=== PATIENT | female | born 1965 | race Caucasian/White ===

== ENCOUNTER 2016-09-28 11:56 | Emergency (ER) | payer BC, OTHER ==
[2016-09-28 12:09] VITALS: BP 116/77; BMI 41.7
[2016-09-28] MEDS ORDERED: VALIUM INJ IM ONE (12:48)
--- NOTE | 2016-09-28 12:50 | DR.GENAD ---
HPI - PCP Primary Care Physician: Aris Milian - Complaint/Symptoms Chief Complaint Doctors Comments: Patient admits to head (occipital) pain when head is in motion. She admits to severe neck pain. Chief Complaint:: Pain in lower skull, radiating to face and jaw. Self Treatment fo Chief Complaint: shoulders were hurting and it radiated to head, now it is in lower skull radiating to face and jaw. - Source History Provided: Patient - Mode of Arrival Mode of Arrival: Ambulatory - Timing Onset of Chief Complaint: 09/26/16 PMH - PMH Past Medical History: Yes Past Medical History: Diabetes, GERD, Headaches, Hypertension, Hypothyroidism Past Surgical History: Yes Surgical History: Cholecystectomy, Hysterectomy - Family History History of Family Medical Conditions: Yes Family Medical History: [place], Coronary Artery Disease - Social History Does patient currently use any type of tobacco product: No Have you used tobacco products in the last 12 months: No Type of Tobacco Use: None Does any household member use tobacco: No Alcohol Use: None Do you use any recreational Drugs:: No Lives With: Spouse Lives Where: Home - infectious screening In the last 2 months have you had wt loss of >10#?: NO Have you had fever, night sweats or hemotysis?: No Have you traveled outside the country in the last 6 months?: No Isolation: Standard ROS - Review of Systems Eyes: No Symptoms Reported ENTM: No Symptoms Reported Respiratoy: No Symptoms Reported Cardiovascular: No Symptoms Reported Gastrointestinal/Abdominal: No Symptoms Reported Genitourinary: No Symptoms Reported Neurological: No Symptoms Reported Musculoskeletal: No Symptoms Reported Integumentary: No Symptoms Reported Hematologic/Lymphatic: No Symptoms Reported Endocrine: No Symptoms Reported Psychiatric: No Symptoms Reported All Other Systems: Reviewed and Negative PE - Vital Signs Vitals: Temperature 98.5 F Pulse Rate 110 Respiratory Rate 20 Blood Pressure [Right Arm] 133/87 Blood Pressure 116/77 O2 Sat by Pulse Oximetry 94 - General Limitations: No Limitations General Appearance: Alert, Anxious - Head Head Exam: Normal Inspection, Atraumatic - Eyes Eye exam: Normal Appearance, PERRL, EOMI - ENT ENT Exam: Normal Exam, Normal Oropharynx External Ear Exam: Normal External Inspection TM/Canal Exam: Left Normal Nose Exam: Normal Nose Exam Mouth Exam: Normal Inspection Throat Exam: Normal Inspection - Neck Neck Exam: Normal Inspection, Tenderness, Other (decreased ROM) - Chest Chest Inspection: Normal Inspection - Respiratory Respiratory Exam: Normal Lung Sounds Bilat Respiratory Exam: Bilateral Clear to Auscultation - Cardiovascular Cardiovascular Exam: Regular Rate, Normal Rhythm - Abdominal Exam Abdominal Exam: Normal Inspection Abdominal Tenderness: negative: RUQ, RLQ, LUQ, LLQ, Epigastrium, Suprapubic, Diffuse, Mild, Moderate, Severe, Other - Extremities Extremities Exam: Normal Inspection, Full ROM, Tenderness - Back Back Exam: Normal Inspection, Full ROM - Neurologic Neurological Exam: Alert, Oriented X3, CN II-XII Intact - Psychiatric Psychiatric Exam: Depressed - Skin Skin Exam: Warm, Dry, Intact ROR - XRAY XRAY Interpreted by: Radiologist (Cervical Spine:There is moderate disc space narrowing throughout the lower cervical spine which is most sevee at C5 and C6- 7 with prominent osteophytes at both levels. No fracture of subluxation is seen. The atlantoaxial joint is partially obscuree on the open mouth view. The prevertebral soft tissues are normal.) - Diagnosis Discharge Problem: DJD (degenerative joint disease) of cervical spine Qualifiers: Spinal osteoarthritis complication: with radiculopathy Qualified Code(s): M47.22 - Other spondylosis with radiculopathy, cervical region - Discharge Plan Condition: Stable - Follow ups/Referrals Follow ups/Referrals: ARIS MILIAN [Primary Care Provider] - 3 days - Instructions
[2016-09-28] MEDS ORDERED: VALIUM INJ ONE (12:51)
--- NOTE | 2016-09-28 13:13 | RAD ---
HISTORY: pain Study: C-spine series Comparison: None Findings: The cervical vertebra are well aligned. There is moderate disc space narrowing throughout the lower cervical spine which is most severe at C5-6 and C6-7 with prominent osteophytes at both levels. No f racture or subluxation is seen. The atlantoaxial joint is partially obscured on the open-mouth view. The prevertebral soft tissues are normal. IMPRESSION: Moderate degenerative disk changes along the lower cervical spine with no acute abnormality seen. Partial obscuration of the atlantoaxial joint on the open-mouth view limiting evaluation of the area . Reported By:
== END 2016-09-28 13:42 | disposition home or self-care (01) ==
LOC: ER 12:13
DX: M47.22 Other spondylosis with radiculopathy, cervical region (principal)
CPT/HCPCS: 72040; 96372; 99282; J3360

== ENCOUNTER 2017-05-25 17:37 | Emergency (ER) | payer OTHER ==
[2017-05-25 17:45] VITALS: BMI 39.6
--- NOTE | 2017-05-25 18:09 | DR.CP ---
HPI - Time Seen Time seen: 17:50 - PCP Primary Care Physician: KYUNG MAHAN LEHR ATTENDANT - Complaint Chief Complaint Doctor Comments: She had c/p on Friday (4days ago) and this morning in [facility]. There was no diaphoresis, N/V or palpation. Her yearly cardiology exam. is coming up in [address] Lee. Location is beneath her left breast and sometimes in left mid-clavicular line over the left breast. Chief Complaint:: PT C/O HAVING SOME CHEST PAIN WHILE AT [employer] THIS AM AND THAT IT BAGAN TO WORK ITS WAY UP TO BETWEEN HER BREASTS THAT THIS IT STOPPED OVER HER LEFT BREASTS AND SHARP PAIN PT DENIES ANY PRESSRUE OR RADIATION.. Self Treatment fo Chief Complaint: PT SEES IRINA DIAZ AND SHE HAS AN APPT ON FRIDAY AND PT WANTS TO BE CHECKED DUE TO STRONG FAMILY HX,,,, PT STATES THIS HAS HAPPENED BEFORE AND THAT HER BROTHER OF A MASSIVE MA IN 2014.. - Reviewed Nurses Notes Review: Yes - Source History Provided: Patient - Mode of Arrival Mode of Arrival: Ambulatory - Timing Onset of Chief Complaint: 05/25/17 - Location Location of Chest Pain: Left, Chest Chest Pain Radiation Location: None - Context Onset: At rest Cardiac Risk Factors: HTN, Other (PreDM) PE Risk Factors: None History of: None - Quality Quality: Sharp - Associated Signs and Symptoms Associated Signs and Symptoms: None PMH - PMH Past Medical History: Yes Past Medical History: Diabetes, GERD, Headaches, Hypertension, Hypothyroidism Past Surgical History: Yes Surgical History: Cholecystectomy, Hysterectomy - Family History History of Family Medical Conditions: Yes Family Medical History: [place], Coronary Artery Disease - Social History Does patient currently use any type of tobacco product: No Have you used tobacco products in the last 12 months: No Type of Tobacco Use: None Does any household member use tobacco: No Alcohol Use: None Do you use any recreational Drugs:: No Lives With: Family Lives Where: Home - infectious screening In the last 2 months have you had wt loss of >10#?: NO Have you had fever, night sweats or hemotysis?: No Have you traveled outside the country in the last 6 months?: No Isolation: Standard ROS - Review of Systems Constitutional: No Symptoms Reported Eyes: No Symptoms Reported ENTM: No Symptoms Reported Respiratoy: No Symptoms Reported Cardiovascular: Chest Pain Gastrointestinal/Abdominal: No Symptoms Reported Genitourinary: No Symptoms Reported Neurological: No Symptoms Reported Musculoskeletal: No Symptoms Reported Integumentary: No Symptoms Reported Hematologic/Lymphatic: No Symptoms Reported Endocrine: No Symptoms Reported Psychiatric: No Symptoms Reported All Other Systems: Reviewed and Negative PE - Vitals Vitals: Temperature 98.2 F Pulse Rate 77 Respiratory Rate 18 Blood Pressure [Right Arm] 133/87 Blood Pressure 144/90 O2 Sat by Pulse Oximetry 97 - General Limitations: No Limitations General Appearance: Alert, In No Apparent Distress - Head Head Exam: Normal Inspection - Eyes Eye exam: Normal Appearance - ENT ENT Exam: Normal Exam - Chest Chest Inspection: Normal Inspection - Respiratory Respiratory Exam: Normal Lung Sounds Bilat - Cardiovascular Cardiovascular Exam: Regular Rate, Normal Rhythm - Abdominal Exam Abdominal Exam: Normal Inspection, Normal Bowel Sounds, Soft - Extremities Extremities Exam: Normal Inspection, Full ROM - Back Back Exam: Normal Inspection - Neurologic Neurological Exam: Alert, Oriented X3, CN II-XII Intact - Psychiatric Psychiatric Exam: Normal Affect, Normal Mood - Skin Skin Exam: Warm, Dry, Intact, Normal Color MDM - Differential Diagnosis Differential Diagnosis: Chest Wall Pain, Esophageal Reflux/Spasm, Pneumonia ROR - Labs Reviewed Result Diagrams: 05/25/17 18:20 05/25/17 18:20 Laboratory: WBC 6.0 X10^3/uL (3.6-10.0) 05/25/17 18:20 RBC 4.64 X10^6/uL (3.5-5.4) 05/25/17 18:20 Hgb 14.2 g/dL (12.0-16.0) 05/25/17 18:20 Hct 40.7 % (36.0-47.0) 05/25/17 18:20 MCV 87.7 fL (80.0-100.0) 05/25/17 18:20 MCH 30.5 pg (27.0-34.0) 05/25/17 18:20 MCHC 34.8 g/dL (33.0-35.0) 05/25/17 18:20 RDW 13.1 % (11.6-16.5) 05/25/17 18:20 Plt Count 224 X10^3/uL (150.0-450.0) 05/25/17 18:20 MPV 9.0 fL (7.4-11.0) 05/25/17 18:20 Neut % 51.5 % (42.0-75.0) 05/25/17 18:20 Lymph % 34.6 % (21.0-51.0) 05/25/17 18:20 Citrus % 10.5 % (0.0-13.0) 05/25/17 18:20 Eos % 2.1 % (0.9-2.9) 05/25/17 18:20 Baso % 1.3 % (0.2-1.0) H 05/25/17 18:20 Neut # 3.1 x10^3/uL (2.2-4.8) 05/25/17 18:20 Lymph # 2.1 X10^3/uL (1.3-2.9) 05/25/17 18:20 Citrus # 0.6 x10^3/uL (0.3-0.8) 05/25/17 18:20 Eos # 0.1 x10^3/uL (0.0-0.2) 05/25/17 18:20 Baso # 0.1 X10^3/uL (0.0-0.1) 05/25/17 18:20 Absolute Nucleated RBC 0.1 /100WBC 05/25/17 18:20 INR Target Range - 05/25/17 18:20 INR 1.09 (0.8-1.3) 05/25/17 18:20 PTT 28.9 SECONDS (22.9-36.5) 05/25/17 18:20 PTT Comment - 05/25/17 18:20 Sodium 141 mmol/L (136-145) 05/25/17 18:20 Corrected Sodium TNP 05/25/17 18:20 Potassium 3.5 mmol/L (3.5-5.1) 05/25/17 18:20 Chloride 101 mmol/L (98-107) 05/25/17 18:20 Carbon Dioxide 31.6 mmol/L (21-32) 05/25/17 18:20 BUN 14 mg/dL (7-18) 05/25/17 18:20 Creatinine 0.78 mg/dL (0.55-1.02) 05/25/17 18:20 Est GFR (MDRD) Af Amer > 60 (>60) 05/25/17 18:20 Est GFR (MDRD) Non-Af > 60 (>60) 05/25/17 18:20 Glucose 91 mg/dL (65-99) 05/25/17 18:20 Calcium 8.5 mg/dL (8.5-10.1) 05/25/17 18:20 Corrected Calcium TNP 05/25/17 18:20 Magnesium 1.7 mg/dL (1.7-2.9) 05/25/17 18:20 Total Bilirubin 0.70 mg/dL (0.2-1.0) 05/25/17 18:20 AST 27 Units/L (15-37) 05/25/17 18:20 ALT 41 Units/L (12-78) 05/25/17 18:20 Alkaline Phosphatase 65 Units/L (46-116) 05/25/17 18:20 Creatine Kinase 82 Units/L (26-192) 05/25/17 18:20 CK-MB (CK-2) < 1.0 ng/mL (0-4.0) 05/25/17 18:20 CK/CKMB % Calc 1.2 % (<4) 05/25/17 18:20 Troponin I < 0.02 ng/mL (0-1.5) 05/25/17 18:20 Total Protein 7.5 g/dL (6.4-8.2) 05/25/17 18:20 Albumin 3.9 g/dL (3.4-5.0) 05/25/17 18:20 Globulin 3.6 g/dL (2.5-4.5) 05/25/17 18:20 Albumin/Globulin Ratio 1.1 Ratio (1.1-2.1) 05/25/17 18:20 - XRAY XRAY Interpreted by: Self (NAD process npted) - EKG Rate: 61 [place]: Normal Rhythm: NSR Hypertrophy: None ST: Normal - Diagnosis Discharge Problem: Chest pain in adult - Discharge Plan Disposition: 01 HOME, SELF-CARE Condition: Stable - Follow ups/Referrals Follow ups/Referrals: KYUNG MAHAN [Primary Care Provider] - 3 days - Instructions
--- NOTE | 2017-05-25 18:26 | RAD ---
Examination: AP chest History: Chest pain Comparison 06/28/2014 Findings: Continued normal heart size with essentially clear lungs and pleural spaces. The retrocardi ac left lower lung is not well visualized on this AP view. No pneumothorax or large pleural effusion. Impression: No acute findings. Standard PA and lateral views suggested for more accurate evaluation w hen condition permits. Reported By:
[2017-05-25 18:28] LABS: BASOPHILS # (AUTO) 0.1 X10^3/uL (0.0-0.1); BASOPHILS % (AUTO) 1.3 % (0.2-1.0); EOSINOPHILS # (AUTO) 0.1 x10^3/uL (0.0-0.2); EOSINOPHILS % (AUTO) 2.1 % (0.9-2.9); HEMATOCRIT 40.7 % (36.0-47.0); HEMOGLOBIN 14.2 g/dL (12.0-16.0); LYMPHOCYTES # (AUTO) 2.1 X10^3/uL (1.3-2.9); LYMPHOCYTES % (AUTO) 34.6 % (21.0-51.0); MEAN CORPUSCULAR HEMOGLOBIN 30.5 pg (27.0-34.0); MEAN CORPUSCULAR HGB CONC 34.8 g/dL (33.0-35.0); MEAN CORPUSCULAR VOLUME 87.7 fL (80.0-100.0); MONOCYTES # (AUTO) 0.6 x10^3/uL (0.3-0.8); MONOCYTES % (AUTO) 10.5 % (0.0-13.0); NEUTROPHILS # (AUTO) 3.1 x10^3/uL (2.2-4.8); NEUTROPHILS % (AUTO) 51.5 % (42.0-75.0); PLATELET COUNT 224 X10^3/uL (150.0-450.0); RED BLOOD COUNT 4.64 X10^6/uL (3.5-5.4); RED CELL DISTRIBUTION WIDTH 13.1 % (11.6-16.5)
[2017-05-25 18:50] LABS: ALANINE AMINOTRANSFERASE 41 Units/L (12-78); ALBUMIN 3.9 g/dL (3.4-5.0); ALKALINE PHOSPHATASE 65 Units/L (46-116); ASPARTATE AMINO TRANSFERASE 27 Units/L (15-37); BLOOD UREA NITROGEN 14 mg/dL (7-18); CALCIUM 8.5 mg/dL (8.5-10.1); CARBON DIOXIDE 31.6 mmol/L (21-32); CHLORIDE 101 mmol/L (98-107); CREATINE KINASE 82 Units/L (26-192); CREATINE KINASE MB < 1.0 ng/mL (0-4.0); CREATININE 0.78 mg/dL (0.55-1.02); MAGNESIUM 1.7 mg/dL (1.7-2.9); TOTAL PROTEIN 7.5 g/dL (6.4-8.2); TROPONIN I < 0.02 ng/mL (0-1.5); eGFR BLACK RACES > 60 (>60); eGFR NON BLACK RACES > 60 (>60)
[2017-05-25 18:53] LABS: CKMB % 1.2 % (<4)
[2017-05-25 18:54] LABS: SODIUM 141 mmol/L (136-145)
[2017-05-25 20:07] VITALS: BP 162/87
== END 2017-05-25 20:07 | disposition home or self-care (01) ==
LOC: ER 17:49
DX: R07.89 Other chest pain (principal)
CPT/HCPCS: 36415; 71045; 80053; 82550; 82553; 83735; 84484; 85025; 85610; 85730; 93005; 93010; 99283

== ENCOUNTER 2017-07-07 10:04 | Emergency (ER) | payer OTHER ==
[2017-07-07 10:08] VITALS: BMI 39.2
--- NOTE | 2017-07-07 10:32 | DR.GENAD ---
HPI - PCP Primary Care Physician: Vijay Sagastume - Complaint/Symptoms Chief Complaint Doctors Comments: Patient presents with complaint of mid- sternal chest pain pain associated with dizziness. She denies radiating or diaphoresis. The pain is level 5/10. She admits to having a cardiac cath on by Dr Mar which was negative She spoke with Dr Lee this AM who referred to the the ED for evaluation. She denies ciagarettes ro alcohol. Negative family history of heart disease. Chief Complaint:: pt states she is having chest pain since last night and has had some dizziness. - Source History Provided: Patient - Mode of Arrival Mode of Arrival: Ambulatory - Timing Onset of Chief Complaint: 07/06/17 PMH - PMH Past Medical History: Yes Past Medical History: Diabetes, GERD, Headaches, Hypertension, Hypothyroidism Past Surgical History: Yes Surgical History: Cholecystectomy, Hysterectomy, Other Past Surgical History Comment: heart cath - Family History History of Family Medical Conditions: Yes Family Medical History: [place], Coronary Artery Disease - Social History Does patient currently use any type of tobacco product: No Have you used tobacco products in the last 12 months: No Type of Tobacco Use: None Does any household member use tobacco: No Alcohol Use: None Do you use any recreational Drugs:: No Lives With: Spouse Lives Where: Home - infectious screening In the last 2 months have you had wt loss of >10#?: NO Have you had fever, night sweats or hemotysis?: No Have you traveled outside the country in the last 6 months?: No Isolation: Standard ROS - Review of Systems Constitutional: Weakness. negative: Chills, Diaphoresis Eyes: No Symptoms Reported ENTM: No Symptoms Reported Respiratoy: No Symptoms Reported Cardiovascular: No Symptoms Reported Gastrointestinal/Abdominal: No Symptoms Reported Genitourinary: No Symptoms Reported Neurological: No Symptoms Reported Musculoskeletal: No Symptoms Reported Integumentary: No Symptoms Reported Hematologic/Lymphatic: No Symptoms Reported Endocrine: No Symptoms Reported Psychiatric: No Symptoms Reported All Other Systems: Reviewed and Negative PE - Vital Signs Vitals: Temperature 98.2 F Pulse Rate 81 Respiratory Rate 18 Blood Pressure [Right Arm] 162/87 Blood Pressure 125/81 O2 Sat by Pulse Oximetry 96 - General Limitations: No Limitations General Appearance: Alert, In No Apparent Distress - Head Head Exam: Normal Inspection, Atraumatic - Eyes Eye exam: Normal Appearance, PERRL, EOMI - ENT ENT Exam: Normal Exam External Ear Exam: Normal External Inspection TM/Canal Exam: Bilateral Normal Nose Exam: Normal Nose Exam Mouth Exam: Normal Inspection Throat Exam: Normal Inspection - Neck Neck Exam: Normal Inspection, Full ROM - Chest Chest Inspection: Normal Inspection - Respiratory Respiratory Exam: Normal Lung Sounds Bilat Respiratory Exam: Bilateral Clear to Auscultation - Cardiovascular Cardiovascular Exam: Regular Rate, Normal Rhythm - Abdominal Exam Abdominal Exam: Normal Inspection Abdominal Tenderness: negative: RUQ, RLQ, LUQ, LLQ, Epigastrium, Suprapubic, Diffuse, Mild, Moderate, Severe, Other - Extremities Extremities Exam: Normal Inspection, Full ROM - Back Back Exam: Normal Inspection, Full ROM - Neurologic Neurological Exam: Alert, Oriented X3, CN II-XII Intact - Psychiatric Psychiatric Exam: Normal Affect - Skin Skin Exam: Warm, Dry Course - Reevaluation 1st: - Consultation Called: 11:50 (spoke with office gave information concerning work up; advised to have her to keep the appointment for ) - Education/Counseling Education/Counseling: Education Educated On: Treatment, Diagnosis, Prognosis, Needs for Follow Up ROR - Labs Reviewed Laboratory Results Reviewed?: Yes (UA:WBC 5-10;3+Leuk/ H Pylori +) Result Diagrams: 07/07/17 10:44 07/07/17 10:44 Laboratory: WBC 5.8 X10^3/uL (3.6-10.0) 07/07/17 10:44 RBC 4.85 X10^6/uL (3.5-5.4) 07/07/17 10:44 Hgb 14.7 g/dL (12.0-16.0) 07/07/17 10:44 Hct 42.5 % (36.0-47.0) 07/07/17 10:44 MCV 87.6 fL (80.0-100.0) 07/07/17 10:44 MCH 30.3 pg (27.0-34.0) 07/07/17 10:44 MCHC 34.6 g/dL (33.0-35.0) 07/07/17 10:44 RDW 13.4 % (11.6-16.5) 07/07/17 10:44 Plt Count 245 X10^3/uL (150.0-450.0) 07/07/17 10:44 MPV 8.8 fL (7.4-11.0) 07/07/17 10:44 Neut % (Auto) 51.2 % (42.0-75.0) 07/07/17 10:44 Lymph % (Auto) 33.1 % (21.0-51.0) 07/07/17 10:44 Bibb % (Auto) 10.4 % (0.0-13.0) 07/07/17 10:44 Eos % (Auto) 3.2 % (0.9-2.9) H 07/07/17 10:44 Baso % (Auto) 2.1 % (0.2-1.0) H 07/07/17 10:44 Neut # (Auto) 3.0 x10^3/uL (2.2-4.8) 07/07/17 10:44 Lymph # (Auto) 1.9 X10^3/uL (1.3-2.9) 07/07/17 10:44 Bibb # (Auto) 0.6 x10^3/uL (0.3-0.8) 07/07/17 10:44 Eos # (Auto) 0.2 x10^3/uL (0.0-0.2) 07/07/17 10:44 Baso # (Auto) 0.1 X10^3/uL (0.0-0.1) 07/07/17 10:44 Absolute Nucleated RBC 0.0 /100WBC 07/07/17 10:44 INR Target Range - 07/07/17 10:44 INR 1.02 (0.8-1.3) 07/07/17 10:44 APTT 29.4 SECONDS (22.9-36.5) 07/07/17 10:44 PTT Comment - 07/07/17 10:44 D-Dimer < 100 ng/mL (0-400) 07/07/17 10:44 Sodium 140 mmol/L (136-145) 07/07/17 10:44 Corrected Sodium 141 mmol/L (136-145) 07/07/17 10:44 Potassium 4.2 mmol/L (3.5-5.1) 07/07/17 10:44 Chloride 104 mmol/L (98-107) 07/07/17 10:44 Carbon Dioxide 29.5 mmol/L (21-32) 07/07/17 10:44 BUN 12 mg/dL (7-18) 07/07/17 10:44 Creatinine 0.71 mg/dL (0.55-1.02) 07/07/17 10:44 Est GFR (MDRD) Af Amer > 60 (>60) 07/07/17 10:44 Est GFR (MDRD) Non-Af > 60 (>60) 07/07/17 10:44 Glucose 126 mg/dL (65-99) H 07/07/17 10:44 Calcium 9.0 mg/dL (8.5-10.1) 07/07/17 10:44 Corrected Calcium TNP 07/07/17 10:44 Magnesium 1.8 mg/dL (1.7-2.9) 07/07/17 10:44 Total Bilirubin 1.10 mg/dL (0.2-1.0) H 07/07/17 10:44 AST 26 Units/L (15-37) 07/07/17 10:44 ALT 39 Units/L (12-78) 07/07/17 10:44 Alkaline Phosphatase 70 Units/L (46-116) 07/07/17 10:44 Creatine Kinase 54 Units/L (26-192) 07/07/17 10:44 CK-MB (CK-2) < 1.0 ng/mL (0-4.0) 07/07/17 10:44 CK/CKMB % Calc 1.9 % (<4) 07/07/17 10:44 Troponin I < 0.02 ng/mL (0-1.5) 07/07/17 10:44 Total Protein 7.8 g/dL (6.4-8.2) 07/07/17 10:44 Albumin 3.9 g/dL (3.4-5.0) 07/07/17 10:44 Globulin 3.9 g/dL (2.5-4.5) 07/07/17 10:44 Albumin/Globulin Ratio 1.0 Ratio (1.1-2.1) L 07/07/17 10:44 TSH 3rd Generation 0.566 uIU/mL (0.358-3.74) 07/07/17 10:44 Specimen Type Clean catch urine 07/07/17 11:17 Urine Color Yellow (YELLOW) 07/07/17 11:17 Urine Appearance Slightly hazy (CLEAR) 07/07/17 11:17 Urine pH 7.0 (5.0 - 8.0) 07/07/17 11:17 Ur Specific [place] 1.010 (1.000-1.030) 07/07/17 11:17 Urine Protein Negative (NEGATIVE) 07/07/17 11:17 Urine Glucose (UA) Negative (NEGATIVE) 07/07/17 11:17 Urine Ketones Negative (NEGATIVE) 07/07/17 11:17 Urine Occult Blood Negative (NEGATIVE) 07/07/17 11:17 Urine Nitrite Negative (NEGATIVE) 07/07/17 11:17 Urine Bilirubin Negative (NEGATIVE) 07/07/17 11:17 Urine Urobilinogen Normal (NORMAL) 07/07/17 11:17 Ur Leukocyte Esterase 3+ (NEGATIVE) 07/07/17 11:17 Urine RBC 3-5 /HPF (NONE SEEN) 07/07/17 11:17 Urine WBC 5-10 /HPF (NONE SEEN) 07/07/17 11:17 Ur Squamous Epith Cells Moderate /HPF (NEGATIVE) 07/07/17 11:17 Ur Renal Epithelial Cell Few /HPF (NEGATIVE) 07/07/17 11:17 Urine Bacteria Trace /HPF (NEGATIVE) 07/07/17 11:17 Ur Culture Indicated? No/not indicated 07/07/17 11:17 H. pylori IgG Antibody Positive (NEGATIVE) A 07/07/17 10:44 - XRAY XRAY Interpreted by: Radiologist (Chest: normal) - Diagnosis Discharge Problem: H. pylori infection Chest pain Qualifiers: Chest pain type: unspecified Qualified Code(s): R07.9 - Chest pain, unspecified - Discharge Plan Condition: Stable Prescriptions: Amoxicillin [AMOXIL CAP 500 MG *] 1,000 mg PO BID #56 cap Clarithromycin [CLARITHROMYCIN 500 MG TAB *] 500 mg PO Q12H #28 tab Lansoprazole [Lansoprazole 30 mg] 30 mg PO DAILY #30 cap - Follow ups/Referrals Follow ups/Referrals: VIJAY SAGASTUME [Primary Care Provider] - 3 days - Instructions
[2017-07-07] MEDS ORDERED: NS 1000 ML 1,000 ML ONE (10:37)
[2017-07-07 10:53] LABS: BASOPHILS # (AUTO) 0.1 X10^3/uL (0.0-0.1); BASOPHILS % (AUTO) 2.1 % (0.2-1.0); EOSINOPHILS # (AUTO) 0.2 x10^3/uL (0.0-0.2); EOSINOPHILS % (AUTO) 3.2 % (0.9-2.9); HEMATOCRIT 42.5 % (36.0-47.0); HEMOGLOBIN 14.7 g/dL (12.0-16.0); LYMPHOCYTES # (AUTO) 1.9 X10^3/uL (1.3-2.9); LYMPHOCYTES % (AUTO) 33.1 % (21.0-51.0); MEAN CORPUSCULAR HEMOGLOBIN 30.3 pg (27.0-34.0); MEAN CORPUSCULAR HGB CONC 34.6 g/dL (33.0-35.0); MEAN CORPUSCULAR VOLUME 87.6 fL (80.0-100.0); MEAN PLATELET VOLUME 8.8 fL (7.4-11.0); MONOCYTES # (AUTO) 0.6 x10^3/uL (0.3-0.8); MONOCYTES % (AUTO) 10.4 % (0.0-13.0); NEUTROPHILS % (AUTO) 51.2 % (42.0-75.0); PLATELET COUNT 245 X10^3/uL (150.0-450.0); RED BLOOD COUNT 4.85 X10^6/uL (3.5-5.4); RED CELL DISTRIBUTION WIDTH 13.4 % (11.6-16.5); WHITE BLOOD COUNT 5.8 X10^3/uL (3.6-10.0)
[2017-07-07] MEDS ORDERED: NS 1000 ML 1,000 ML IV SCH (11:00)
--- NOTE | 2017-07-07 11:02 | RAD ---
History: Chest pain Study: Chest single view portable Findings: AP portable examination of chest is compared to the previous study of 05/25/2017. Again no evident cardiopulmonary or bony thoracic abnormality is identified. Impression: Normal chest. Reported By:
[2017-07-07] MEDS ORDERED: NITROSTAT SL PRN (11:17)
[2017-07-07] MEDS ORDERED: NITROSTAT SL ONE (11:18)
[2017-07-07 11:20] LABS: BLOOD UREA NITROGEN 12 mg/dL (7-18); CARBON DIOXIDE 29.5 mmol/L (21-32); CHLORIDE 104 mmol/L (98-107); COR NA(FOR HYPERGLY) 141 mmol/L (136-145); CREATININE 0.71 mg/dL (0.55-1.02); SODIUM 140 mmol/L (136-145); TROPONIN I < 0.02 ng/mL (0-1.5); eGFR BLACK RACES > 60 (>60); eGFR NON BLACK RACES > 60 (>60)
[2017-07-07 11:24] LABS: ALANINE AMINOTRANSFERASE 39 Units/L (12-78); ALBUMIN 3.9 g/dL (3.4-5.0); ALKALINE PHOSPHATASE 70 Units/L (46-116); ASPARTATE AMINO TRANSFERASE 26 Units/L (15-37); CKMB % 1.9 % (<4); CREATINE KINASE 54 Units/L (26-192); CREATINE KINASE MB < 1.0 ng/mL (0-4.0); MAGNESIUM 1.8 mg/dL (1.7-2.9); TOTAL PROTEIN 7.8 g/dL (6.4-8.2)
[2017-07-07 11:26] LABS: BILIRUBIN,URINE NEGATIVE (NEGATIVE); BLOOD/HEMOGLOBIN,URINE NEGATIVE (NEGATIVE); GLUCOSE, URINE NEGATIVE (NEGATIVE); KETONES,URINE NEGATIVE (NEGATIVE); LEUKOCYTE ESTERASE ,URINE 3+ (NEGATIVE); NITRITES,URINE NEGATIVE (NEGATIVE); PROTEIN,URINE NEGATIVE (NEGATIVE); UROBILINOGEN,URINE NORMAL (NORMAL)
[2017-07-07 11:38] LABS: APPEARANCE,URINE SLIGHTLY HAZY (CLEAR); COLOR,URINE YELLOW (YELLOW)
[2017-07-07 11:39] LABS: BACTERIA,URINE TRACE /HPF (NEGATIVE); RENAL EPITHELIAL CELLS,URINE FEW /HPF (NEGATIVE); SQUAMOUS EPITHELIAL CELL,UR MODERATE /HPF (NEGATIVE)
[2017-07-07 12:39] VITALS: BP 125/80
== END 2017-07-07 12:34 | disposition home or self-care (01) ==
LOC: ER 10:10
DX: R07.89 Other chest pain (principal); B96.81 Helicobacter pylori [H. pylori] as the cause of diseases classified elsewhere; Z98.61 Coronary angioplasty status
CPT/HCPCS: 36415; 71045; 80053; 81001; 82550; 82553; 83735; 84443; 84484; 85025; 85378; 85610; 85730; 86677; 93005; 93010; 96365; 99283; 99284; A4222